=== PATIENT | female | born 1995 | race American Indian/Alaskan Native ===

== ENCOUNTER 2017-08-14 17:28 | Emergency (ER) | payer OTHER ==
[2017-08-14 18:30] VITALS: BP 110/60
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
[2017-08-14 23:14] LABS: Bilirubin,Urine NEG (Negative); Blood,Urine LG (Negative); Ketones,Urine NEG (Negative); Leukocyte Esterase,Urine NEG (Negative); Mucus,Urine 1+ /HPF; Nitrite,Urine NEG (Negative); Protein,Urine <15 mg/dL mg/dL (Negative); Urobilinogen,Urine < 2.0 mg/dL (<2.0)
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
== END 2017-08-15 00:48 | disposition home or self-care (01) ==
LOC: ED 17:28
DX: S39.012A Strain of muscle, fascia and tendon of lower back, initial encounter (principal); S16.1XXA Strain of muscle, fascia and tendon at neck level, initial encounter; V89.2XXA Person injured in unspecified motor-vehicle accident, traffic, initial encounter; Y93.89 Activity, other specified; Y92.89 Other specified places as the place of occurrence of the external cause; Y99.8 Other external cause status
CPT/HCPCS: 72040; 72100; 81001; 81025; 99284

== ENCOUNTER 2018-11-23 07:06 | Emergency (ER) | payer OTHER ==
[2018-11-23 07:14] VITALS: BP 112/73
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
[2018-11-23] MEDS ORDERED: ZOFRAN ORAL LIQ PO ONE (10:44)
[2018-11-23] MEDS ORDERED: VICKS SINEX NS ONE (10:44)
[2018-11-23] MEDS ORDERED: LIDOCAINE VISCOUS 2% PO ONE (10:45)
[2018-11-23] MEDS ORDERED: IBUPROFEN PO ONE (10:47)
[2018-11-23] MEDS ORDERED: TYLENOL PO ONE (10:47)
[2018-11-23 13:31] LABS: HCG Qualitative,Urine Negative (Negative)
[2018-11-23 13:32] LABS: Bacteria,Urine 2+ /HPF (Negative); Bilirubin,Urine NEG (Negative); Blood,Urine SM (Negative); Color,Urine Amber (Yellow); Mucus,Urine 2+ /HPF
[2018-11-23 13:33] LABS: WBC,Urine > 182.0 /HPF (0.0-6.0)
== END 2018-11-23 11:36 | disposition home or self-care (01) ==
LOC: ED 07:06
DX: B34.9 Viral infection, unspecified (principal); N39.0 Urinary tract infection, site not specified; F17.200 Nicotine dependence, unspecified, uncomplicated
CPT/HCPCS: 81001; 81025; 99283; Q0162